=== PATIENT | male | born 1940 | race Caucasian/White ===

== ENCOUNTER 2018-03-06 09:09 | Emergency (ER) | payer MEDICARE ==
[~2018-03-06] VITALS: Ht 185.4 cm; Wt 109.1 kg
[~2018-03-06 09:09] MED LIST: CHILD'S ASA81 MG OR; CLINORIL PO; LISINOPRIL40 MG OR; METFORMIN500 M2 OR; MULTI VIT OR; OMEGA 31000 MG OR; PRAVASTATIN80 MG OR
[2018-03-06] MEDS ORDERED: LORATADINE10 M1 PO (09:46)
[2018-03-06 09:52] LABS: HEMATOCRIT 40.5 % (39.0-50.0); HEMOGLOBIN 13.3 g/dl (14.0-18.0); IMMATURE GRANULOCYTES 0.5 % (0.0-5.0); MEAN CELL VOLUME 96.9 fL CALC (80.0-100.0); MEAN CORPUSCULAR HGB 31.8 pG CALC (26.0-32.0); MEAN CORPUSCULAR HGB CONC 32.8 g/L CALC (32.0-36.0); NEUT# 6.52 thou/uL (1.82-7.42); RED BLOOD COUNT 4.18 mill/uL (4.70-6.10); RED CELL DISTRI WIDTH 12.8 % (11.5-15.5)
[2018-03-06 10:08] LABS: BILIRUBIN, TOTAL 1.1 mg/dL (0.0-1.4); CREATININE 1.4 mg/dL (0.7-1.3); POTASSIUM 4.7 mmol/l (3.5-5.1)
[2018-03-06 10:10] LABS: ALBUMIN 4.5 g/dL (3.2-5.0); INFLUENZA B NONE DETECTED (NONE DETECT); TOTAL PROTEIN 7.8 g/dL (6.3-8.2)
[2018-03-06] MEDS ORDERED: TAM75CAP PO (10:23)
[2018-03-06 10:48] VITALS: BP 143/69
== END 2018-03-06 10:50 | disposition home or self-care (01) ==
LOC: ED 09:09
PROVIDERS: Emergency Medicine
DX: J11.1 Influenza due to unidentified influenza virus with other respiratory manifestations (principal); E11.9 Type 2 diabetes mellitus without complications; I10 Essential (primary) hypertension